=== PATIENT | female | born 1985 | race Caucasian/White ===

== ENCOUNTER 2018-09-18 05:44 | Day surgery (SDC) | payer OTHER ==
[2018-09-11 15:04] LABS: BASOPHILS % (AUTO) 0.4 % (0-1); EOSINOPHILS # (AUTO) 0.2 X10'3 (0-0.9); EOSINOPHILS % (AUTO) 1.7 % (0-6); LYMPHOCYTES # (AUTO) 2.5 X10'3 (1.1-4.8); LYMPHOCYTES % (AUTO) 23.5 % (21-51); MEAN CORPUSCULAR HEMOGLOBIN 28.7 PG (27.0-31.0); MEAN CORPUSCULAR HGB CONC 33.2 g/dL (33.0-36.5); MEAN CORPUSCULAR VOLUME 86.4 FL (78-98); MEAN PLATELET VOLUME 9.3 FL (7.4-10.4); MONOCYTES # (AUTO) 0.8 X10'3 (0-0.9); MONOCYTES % (AUTO) 7.4 % (2-12); NEUTROPHILS # (AUTO) 7.1 X10'3 (1.8-7.7); PRE OP HEMATOCRIT 38.2 % (35.0-45.0); PRE OP HEMOGLOBIN 12.7 g/dL (12.0-16.0); PRE OP PLATELET COUNT 357 X10'3 (140-440); RED BLOOD COUNT 4.42 X10'6 (4.20-5.60); RED CELL DISTRIBUTION WIDTH 13.2 % (11.5-14.5)
[2018-09-11 15:21] LABS: ALBUMIN 3.3 G/DL (3.4-5.0); ALBUMIN/GLOBULIN RATIO 0.8 (1.1-1.5); ALKALINE PHOSPHATASE 123 IU/L (46-116); BLOOD UREA NITROGEN 21 MG/DL (7-18); BUN/CREATININE RATIO 27.3 (6.6-38.0); CALCIUM 9.1 MG/DL (8.5-10.1); CHLORIDE 103 MMOL/L (99-107); CREATININE 0.77 MG/DL (0.40-0.90); PRE OP ALT 22 U/L (30-65); PRE OP ANION GAP 9 (8-16); PRE OP AST 12 U/L (10-37); PRE OP BILIRUB, TOTAL 0.2 MG/DL (0.0-1.0); PRE OP GLUCOSE 92 MG/DL (70-104); PRE OP POTASSIUM 3.8 MMOL/L (3.4-5.1); PRE OP SODIUM 140 MMOL/L (135-145); TOTAL CARBON DIOXIDE 27.7 MMOL/L (24-32); TOTAL PROTEIN 7.3 G/DL (6.4-8.2); eGFR 87 ML/MIN
[2018-09-11 15:30] LABS: HCG SERUM QL NEGATIVE
[2018-09-18] VITALS (10 sets, daily range): BP systolic 104–133; BP diastolic 51–82
[~2018-09-18] VITALS: Ht 162.6 cm; Wt 120.2 kg
[~2018-09-18 05:44] MED LIST: NO HOME MEDS; ceFAZolin inj. 3,000 MG in normal saline 100ml IV soln 100 ML IV ONE; famotidine 20mg tablet PO ONE; ringers solution, lacted 1,000 ML IV SCH
[2018-09-18] MEDS ORDERED: LIDOcaine 1% (10mg/ml) 2ml vial ONE (05:57)
[2018-09-18] MEDS ORDERED: ondansetron/PF 4mg/2ml inj ONE (07:26)
[2018-09-18] MEDS ORDERED: dexamethasone sod phosphate 10mg/ml inj ONE (07:26)
[2018-09-18] MEDS ORDERED: sevoflurane 250ml liquid IH ONE (07:26)
[2018-09-18] MEDS ORDERED: midazolam 2 mg/2 ml injection ONE (07:29)
[2018-09-18] MEDS ORDERED: fentaNYL /PF 50mcg/ml 5ml ampule ONE (07:30)
[2018-09-18] MEDS ORDERED: propofol inj 20 ML IV ONE (07:30)
[2018-09-18] MEDS ORDERED: LIDOcaine 2% (20mg/ml) 5ml vial ONE (07:31)
[2018-09-18] MEDS ORDERED: fentaNYL/PF 50MCG/1 ML 2ML syringe ONE (08:19)
[2018-09-18] MEDS ORDERED: ketamine 50 mg/ml 10ml vial ONE (09:04)
[2018-09-18] MEDS ORDERED: morphine 10mg/ml inj. ONE (09:04)
[2018-09-18] MEDS ORDERED: ROPIVAcaine 0.5% (5mg/ml) 30ml vial ONE (09:13)
[2018-09-18] MEDS ORDERED: ketorolac trometh. 30mg/ml inj. ONE (09:26)
[2018-09-18] MEDS ORDERED: HYDROcodone/acetaminophen 10/325mg tab PO PRN (09:40)
--- NOTE | 2018-09-18 09:50 | NUR ---
Received from OR via bed, accompanied by Anesthesiologist. Report received. Initial physical assessment done and recorded.
[2018-09-18] MEDS ORDERED: ringers solution, lacted 1,000 ML IV SCH (09:57)
[2018-09-18] MEDS ORDERED: morphine 4 MG/ML inj SYRINge IV PRN ×2 (10:00)
[2018-09-18] MEDS ORDERED: meperidine/PF 25mg/ml syringe IV PRN ×3 (10:00)
[2018-09-18] MEDS ORDERED: ondansetron/PF 4mg/2ml inj IV PRN (10:00)
[2018-09-18] MEDS ORDERED: proCHLORperazine 10 MG/2 ml inj IV PRN (10:00)
[2018-09-18] MEDS ORDERED: HYDROcodone/acetaminophen 10/325mg tab PO ONE (10:20)
--- NOTE | 2018-09-18 11:15 | NUR ---
Discharge criteria met, discharge instructions given, demonstrates verbal understanding. Discharged home in good condition.
== END 2018-09-18 11:15 | disposition home or self-care (01) ==
LOC: PAS 05:44
PROVIDERS: ATTEND Orthopaedic Surgery
DX: S83.512A Sprain of anterior cruciate ligament of left knee, initial encounter (principal); X58.XXXA Exposure to other specified factors, initial encounter; Y93.89 Activity, other specified; Y92.89 Other specified places as the place of occurrence of the external cause; Y99.8 Other external cause status; M22.42 Chondromalacia patellae, left knee; Z79.899 Other long term (current) drug therapy
CPT/HCPCS: 29888; 36415; 80053; 82948; 84703; 85025; A6449; C1713; J0690; J1100; J1885; J2001; J2250; J2270; J2405; J2704; J3010; J3490; L1832; A7000; J2795; J7030; J7120